=== PATIENT | female | born 1950 | race Caucasian/White ===

== ENCOUNTER 2018-06-03 09:02 | Day surgery (SDC) | payer OTHER ==
[2018-06-03] MEDS ORDERED: KETOROLAC 30 MG/ML VIAL ONE (11:12)
[2018-06-03] MEDS ORDERED: LIDOCAINE 2% 100 MG/5 ML UJET TP ONE (11:12)
== END 2018-06-03 12:30 | disposition home or self-care (01) ==
LOC: MDS 09:02 → MMU 09:03 → MDS 12:30
PROVIDERS: ATTEND Internal Medicine Gastroenterology
DX: Z12.11 Encounter for screening for malignant neoplasm of colon (principal); K57.30 Diverticulosis of large intestine without perforation or abscess without bleeding; K64.8 Other hemorrhoids; E66.01 Morbid (severe) obesity due to excess calories; E11.9 Type 2 diabetes mellitus without complications; K21.9 Gastro-esophageal reflux disease without esophagitis; I10 Essential (primary) hypertension; Z79.82 Long term (current) use of aspirin; Z79.84 Long term (current) use of oral hypoglycemic drugs; Z79.899 Other long term (current) drug therapy; Z98.890 Other specified postprocedural states; Z90.49 Acquired absence of other specified parts of digestive tract; Z90.710 Acquired absence of both cervix and uterus
CPT/HCPCS: 45378; 82948; J1885

== ENCOUNTER 2018-06-26 10:49 | Emergency (ER) | payer OTHER ==
[~2018-06-26] VITALS: Ht 160 cm; Wt 104.3 kg
[2018-06-26 11:00] VITALS: BP 122/73
[2018-06-26] MEDS ORDERED: HYDROcodone/APAP 5/325 MG 1 TAB TAB PO ONE (11:15)
[2018-06-26 12:52] VITALS: BP 120/70
== END 2018-06-26 12:52 | disposition home or self-care (01) ==
LOC: MED 10:49
DX: S92.351A Displaced fracture of fifth metatarsal bone, right foot, initial encounter for closed fracture (principal); I10 Essential (primary) hypertension; W23.0XXA Caught, crushed, jammed, or pinched between moving objects, initial encounter; Y93.I9 Activity, other involving external motion; Y92.488 Other paved roadways as the place of occurrence of the external cause; Y99.8 Other external cause status
CPT/HCPCS: 29515; 73630; 99284